=== PATIENT | female | born 1970 | race Caucasian/White ===

== ENCOUNTER 2020-05-23 22:53 | Inpatient (IN) | payer OTHER, SELFPAY ==
[2020-05-23 23:06] VITALS: BP 154/101; PULSE 119; RESP 17; TEMP 36.6; O2SAT 98; BMI 20.5
--- NOTE | 2020-05-23 23:06 | CT_ITS ---
EXAMINATION: CT HEAD WITHOUT CONTRAST CLINICAL INFORMATION: Hallucination COMPARISON: 04/05/2019 TECHNIQUE: Contiguous axial imaging was performed from the skull base to vertex without intravenous administration of contrast. This CT examination was performed using dose optimization techniques as appropriate, variously including the following: *Automated exposure control *Adjustment of mA and/or kV according to patient size (this includes techniques or standardized protocols for targeted exams where dose is matched to indication/reason for exam; i.e. extremities or head) *Use of iterative reconstruction technique DLP: 596 mGy-cm FINDINGS: There is no evidence of acute intracranial hemorrhage or territorial infarction. No abnormal mass effect or midline shift is seen. Parada to white matter differentiation is well preserved. No extra-axial fluid collections are identified. The ventricles are normal in size. There is no abnormal attenuation within the brain parenchyma. The osseous structures and soft tissues are normal. The mastoid air cells and visualized portions of the paranasal sinuses are well aerated. CT/CT head/brain wo con IMPRESSION: No acute intracranial pathology.
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
[2020-05-23 23:44] LABS: Eosinophils Percent Auto 0.5 % (0-4); Hematocrit 39.7 % (37-47); MANUAL DIFF FLAG SCAN; Mean Corpuscular Volume 94.7 fL (80-98); PLT CLUMP 1; Red Blood Count 4.19 X10*6/uL (4.20-5.50); SCAN SMEAR FLAG 1
--- NOTE | 2020-05-23 23:45 | PC.NURSE ---
Patient compliant with admission process, calm and cooperative, mood pleasant, denied distress at this time, BHN faxed/called/spoke with [facility]/confirmed receipt of referral, will continue to monitor.
[2020-05-23 23:46] LABS: Basophils Absolute Auto 0.1 X10*3/uL (0.0-0.2); Basophils Percent Auto 0.9 % (0-2); Hemoglobin 13.6 g/dl (12.0-16.0); Imm Gran Abs Auto 0.02 X10*3/uL (0.00-0.03); Imm Gran Pct Auto 0.3 % (0.0-0.4); Lymphocytes Absolute Auto 0.9 X10*3/uL (1.2-4.9); Lymphocytes Percent Auto 13.5 % (20-40); Mean Corpuscular HGB Conc 34.3 g/dl (31.0-35.0); Mean Corpuscular Hemoglobin 32.5 pg (27.0-33.0); Mean Platelet Volume 11.2 fL (9.4-12.3); Monocytes Absolute Auto 0.6 X10*3/uL (0.1-1.2); Monocytes Percent Auto 10.1 % (2-11); Neutrophils Absolute Auto 4.7 X10*3/uL (2.0-8.3); Neutrophils Percent Auto 74.7 % (45-73); Red Cell Distribution Width 13.1 % (11.0-16.0); White Blood Count 6.4 X10*3/uL (4.8-10.8)
[2020-05-23 23:47] LABS: Base Excess VBG -0.9 mmol/L; HCO3 VBG 25 mmol/L; PCO2 VBG 46 mmhg; PO2 VBG 27 mmhg; pH VBG 7.35 (7.32-7.43)
[2020-05-23 23:48] LABS: Oxygen Saturation VBG 48.8 %
[2020-05-23 23:58] LABS: Ethanol < 10 mg/dL
[2020-05-24] VITALS (12 sets, daily range): BP systolic 96–129; BP diastolic 66–89; PULSE 67–97; RESP 14–77; TEMP 36.1–36.3; O2SAT 97–100
[2020-05-24] MEDS: LORazepam 1 MG TABLET 2 MG PO
[2020-05-24 00:02] LABS: Acetaminophen LAB < 1 mcg/mL (<30)
[2020-05-24 00:04] LABS: Salicylate < 5.0 mg/dL (15-30)
[2020-05-24 00:06] LABS: Glucose Urine UA NEG (NEG); Leukocyte Esterase Urine NEG (NEG); Nitrite Urine NEG (NEG); Specific Gravity - Urine 1.015 (1.005-1.025); Urine Blood NEG (NEG); Urine Ketones NEG (NEG); Urine Protein NEG (NEG-TRACE)
--- NOTE | 2020-05-24 00:06 | ECG_ITS ---
Test Reason : LOW MAG Blood Pressure : / mmHG Vent. Rate : 085 BPM Atrial Rate : 085 BPM P-R Int : 194 ms QRS Dur : 068 ms QT Int : 382 ms P-R-T Axes : 044 033 035 degrees QTc Int : 454 ms Normal sinus rhythm RSR' or QR pattern in V1 suggests right ventricular conduction delay Otherwise normal ECG No previous ECGs available Referred By: Marisa Mata Electronically Signed By:THOMAS CARTER MD
[2020-05-24 00:08] LABS: Appearance Urine CLOUDY; Color Urine YELLOW
[2020-05-24 00:08] LABS: Alanine Aminotransferase 92 U/L (0-31); Albumin Level 4.8 g/dL (3.5-5.0); Alkaline Phosphatase 72 U/L (39-117); Anion Gap 17 (12-20); Aspartate Amino Transferase 60 U/L (5-31); Bilirubin Direct 0.3 mg/dL (0.0-0.5); Bilirubin Total 0.6 mg/dL (0.0-1.0); Blood Urea Nitrogen 14 mg/dL (9-16); Calcium 10.1 mg/dL (8.4-10.2); Carbon Dioxide 24 mmol/L (22-29); Chloride 97 mmol/L (96-108); Creatinine Clr Calc Pharmacy 73.9; Estimated Glomerular Filt Rate > 60; Glucose Random 128 mg/dL (60-115); Platelet Count 106 X10*3/uL (160-400); Potassium 3.6 mmol/l (3.3-5.1); Sodium 134 mmol/L (135-145); Total Protein 7.9 g/dL (6.5-8.0)
[2020-05-24 00:09] LABS: SLIDE REVIEW VERIFIED
[2020-05-24] MEDS: Magnesium Sulfate/H2O 2 GM/50 ML PIGGYBACK IV (00:20)
[2020-05-24 00:22] LABS: Thyroid Stimulating Hormone 2.98 uIU/mL (0.32-4.0)
--- NOTE | 2020-05-24 00:29 | PC.NURSE ---
patient moved from pod to main ed for low magnesium. placed on cardiac catheterization technician. sinus rhythm. breathing even, non-labored. Reporting cramping in calves. Skin pink, warm, dry.
[2020-05-24 00:33] LABS: Amphetamine Screen Urine Not Detected (Not Detect); Barbiturates, Urine Not Detected (Not Detect); Benzodiazepines Screen Urine Not Detected (Not Detect); Cannabinoid Screen Urine Not Detected (Not Detect); Cocaine Screen Urine Not Detected (Not Detect); Opiate Screen Urine Not Detected (Not Detect); Phencyclidine Screen Urine Not Detected (Not Detect)
[2020-05-24] MEDS: LORazepam 2 MG/ML VIAL 1 MG IVPUSH (00:41)
--- NOTE | 2020-05-24 01:28 | PC.NURSE ---
sleeping at this time
--- NOTE | 2020-05-24 11:08 | PC.NURSE ---
moved to the pod, alert, denies hallucinations, states that she was able to sleep for several hours and hasn't had any hallucinations since leaving her house hours ago,informed of recommendation to stay in hospital and agreeable
--- NOTE | 2020-05-24 11:28 | PC.NURSE ---
Pt transferred from main ED. Pt denies depression, denies VH or AH at this time. IV removed. Pt stated she did not realize that she is awaiting inpatient bed. Pt affect flat, currently on telephone.
[2020-05-24 13:36] LABS: COVID-19 Test Negative (Negative); IDNOW Serial# 9DD0AD1C
--- NOTE | 2020-05-24 14:52 | PC.NURSE ---
Pt resting in room, denies any symptoms of withdrawal, denies headache, denies nausea, no tremors noted. Pt states she is thinking about her upcoming move, states she feels sghe needs to start packing, states she has friends who could help but 'i want to know where things are.'
--- NOTE | 2020-05-24 18:27 | PC.NURSE ---
Pt ate dinner.
--- NOTE | 2020-05-24 19:07 | PC.NURSE ---
Patient in bed appears sleeping, no distress observed/reported, respiration +/=/non-labored bilaterally, will continue to monitor.
[2020-05-24] MEDS: Loratadine 10 MG TABLET PO (21:50)
[2020-05-24] MEDS: traZODone HCL 100 MG TABLET 200 MG PO (21:50)
[2020-05-24] MEDS: LORazepam 1 MG TABLET PO (21:50)
[2020-05-25 06:38] VITALS: BP 110/73; PULSE 82; RESP 18; TEMP 36.8; O2SAT 96
[2020-05-25 09:22] VITALS: BP 120/51; PULSE 81; RESP 18; TEMP 36.9; O2SAT 98
[2020-05-25] MEDS: Pseudoephedrine HCL 30 MG TABLET PO (12:21)
--- NOTE | 2020-05-25 15:32 | PC.NURSE ---
Report given to M5 nurseViky
[2020-05-25 16:08] VITALS: BP 118/74; PULSE 96; RESP 18; TEMP 36.8; O2SAT 98
[2020-05-25] MEDS: LORazepam 0.5 MG TABLET PO ×2 (16:55→23:14)
[2020-05-25 17:40] VITALS: BP 139/98; PULSE 118; TEMP 36.6
[2020-05-25] MEDS: traZODone HCL 100 MG TABLET 200 MG PO (23:07)
[2020-05-25] MEDS: Loratadine 10 MG TABLET PO (23:14)
[2020-05-25] MEDS: Nicotine Polacrilex 2 MG GUM BUCCAL (23:21)
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
[2020-05-26 06:15] VITALS: BP 97/60; PULSE 80; RESP 18; TEMP 36.4; O2SAT 98
[2020-05-26 08:31] LABS: Cholesterol 236 mg/dL; HDL Cholesterol 68 mg/dL; LDL Cholesterol Calculated 148 mg/dl; Triglycerides 104 mg/dL
[2020-05-26 08:32] LABS: Alanine Aminotransferase 91 U/L (0-31); Albumin Level 4.5 g/dL (3.5-5.0); Alkaline Phosphatase 58 U/L (39-117); Anion Gap 14 (12-20); Aspartate Amino Transferase 47 U/L (5-31); Bilirubin Total 0.7 mg/dL (0.0-1.0); Blood Urea Nitrogen 10 mg/dL (9-16); Calcium 9.7 mg/dL (8.4-10.2); Carbon Dioxide 27 mmol/L (22-29); Chloride 100 mmol/L (96-108); Creatinine Clr Calc Pharmacy 78.8; Estimated Glomerular Filt Rate > 60; Glucose Fasting 81 mg/dL (60-99); Potassium 3.9 mmol/l (3.3-5.1); Sodium 137 mmol/L (135-145); Total Protein 7.4 g/dL (6.5-8.0)
[2020-05-26 08:39] LABS: Estimated Average Glucose 103 mg/dL; Hemoglobin A1c % 5.2 %
[2020-05-26] MEDS: LORazepam 0.5 MG TABLET PO ×3 (10:22→23:09)
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
[2020-05-26 12:38] VITALS: BP 111/72; PULSE 92; RESP 16; TEMP 36.8; O2SAT 98
[2020-05-26] MEDS: Nicotine Polacrilex 2 MG GUM BUCCAL (13:12)
[2020-05-26 17:00] VITALS: BP 116/79; PULSE 94; TEMP 36.6
[2020-05-26 19:46] LABS: Alanine Aminotransferase 85 U/L (0-31); Albumin Level 4.5 g/dL (3.5-5.0); Alkaline Phosphatase 68 U/L (39-117); Aspartate Amino Transferase 41 U/L (5-31); Bilirubin Direct < 0.2 mg/dL (0.0-0.5); Bilirubin Total 0.3 mg/dL (0.0-1.0); Gamma Glutamyl Transpeptidase 77 U/L (7-33); Magnesium 1.6 mg/dL (1.6-2.6); Total Protein 7.2 g/dL (6.5-8.0)
[2020-05-26 20:00] VITALS: BP 119/80; PULSE 82; TEMP 36.6
[2020-05-26 21:51] LABS: Folate 10.1 ng/mL (> or = 4.0); Vitamin B12 210 pg/mL (200-900)
[2020-05-26 22:01] LABS: Ammonia 39 umol/L (13-55)
[2020-05-26] MEDS: Loratadine 10 MG TABLET PO (22:30)
[2020-05-26] MEDS: traZODone HCL 100 MG TABLET 200 MG PO (22:30)
[2020-05-27 06:50] VITALS: BP 112/64; PULSE 76; RESP 16; TEMP 36.4
[2020-05-27 08:00] LABS: HBc Num1 0.36 S/CO (0.00-0.79); HBsAGNum1 0.27 S/CO (0.00-0.99); Hepatitis B Core Antibody Nonreactive (Nonreactive); Hepatitis B Surface Antigen Negative (Negative)
[2020-05-27 08:16] LABS: HBS Num1 6.91 mIU/mL (0-7.99); Hepatitis A Antibody IgM 0.27 Index (0-0.79); ~HepC Num1 0.07 S/CO (0.00-0.79); ~Hepatitis A Antibody IgM Nonreactive (Nonreactive); ~Hepatitis B Surface Antibody NONREACTIVE (Nonreactive); ~Hepatitis C Antibody Nonreactive (Nonreactive)
[2020-05-27] MEDS: Acetaminophen 325 MG TABLET 650 MG PO (08:28)
[2020-05-27] MEDS: LORazepam 0.5 MG TABLET PO ×3 (10:10→22:49)
[2020-05-27] MEDS: Nicotine Polacrilex 2 MG GUM BUCCAL (10:16)
[2020-05-27 12:00] VITALS: BP 111/67; PULSE 81; RESP 16; TEMP 36.6; O2SAT 100
[2020-05-27] MEDS: Cyanocobalamin (Vitamin B-12) 1,000 MCG/ML VIAL 1000 MCG IM (16:14)
[2020-05-27] MEDS: Escitalopram Oxalate 5 MG TABLET PO (16:14)
--- NOTE | 2020-05-27 21:28 | HO.PSYCHPN ---
Subjective Subjective Date of Service: 05/28/20 Reason For Visit: depressed mood confusional state Subjective Notes: Conditional Voluntary Interim History: Patient less guarded more forthcoming regarding recent symptoms. Continues to not deny alcohol or substance use. Acknowledging more of the effects of PTSD and its affects on her life. Had not wanted to think of herself as weak read material on depression and PTSD Medication Compliance: Yes Review of Systems Review of Systems Constitutional : No Fever, No Chills ENT/Mouth : No Ear Pain, No Nasal Congestion, No sore throat Eyes: No Eye Pain, No Swelling, No Redness Cardiovascular : No Chest Pain, No SOB Respiratory : No Cough, No Sputum, No Dyspnea Gastrointestinal : No Nausea, No Vomiting, No Diarrhea, No Hematochezia, No Melena Genitourinary : No Dysuria, No Urinary Frequency, No Hematuria Musculoskeletal : No Myalgias Skin : No Skin Lesions, No rash Neuro : No Weakness, No Numbness, No Paresthesias, No Dizziness, No Headache Psych : positive Anxiety, no Depression, no SI/HI Heme/Lymph: No Lymphadenopathy Endocrine : No Polyuria, No Polydipsia All other systems reviewed and are negative Mental Status Exam Mental Status Exam Patient Appearance: Appropriate Patient Orientation: Person, Place, Time and Situation Level of Consciousness: Awake Patient Behavior: Appropriate and Cooperative Mood Description: Constricted, Anxious, Blunted and Apprehensive Affect Description: Constricted and Anxious Patient Cognition Impaired: No Ability to Follow Directions: Good Speech Pattern: Clear Memory Description: Intact Thought Content: positive for Goal Oriented, negative for Suicidal Ideation and negative for Homicidal Ideation Depressive Symptoms: Increased Anxiety and Insomnia Diagnostics Vital Signs (24Hr): Vital Signs - 24 hr 05/27/20 06:50 05/27/20 12:00 Temperature 97.6 F 97.8 F Pulse Rate 76 81 Respiratory Rate 16 16 Blood Pressure 112/64 111/67 Pulse Oximetry 100 Body Mass Index 20.5 Labs Results: 05/23/20 23:33 05/26/20 07:55 Labs: Laboratory Results - last 48 hr 05/26/20 05/26/20 05/26/20 07:55 07:55 07:55 Sodium 137 Potassium 3.9 Chloride 100 Carbon Dioxide 27 Anion Gap 14 BUN 10 Creatinine 0.75 Estim Creat Clear Calc 78.8 Estimated GFR > 60 Fasting Glucose 81 Estimat Average Glucose 103 Hemoglobin A1c % 5.2 Calcium 9.7 Magnesium Total Bilirubin 0.7 Direct Bilirubin GGT AST 47 H ALT 91 H Alkaline Phosphatase 58 Ammonia Total Protein 7.4 Albumin 4.5 Triglycerides 104 Cholesterol 236 LDL Cholesterol, Calc 148 HDL Cholesterol 68 Vitamin B12 Folate Hepatitis A IgM Ab Hep Bs Antigen Hep Bs Antibody Hep B Core Total Ab Hepatitis C Ab (EIA) 05/26/20 05/26/20 05/26/20 18:46 18:46 18:46 Sodium Potassium Chloride Carbon Dioxide Anion Gap BUN Creatinine Estim Creat Clear Calc Estimated GFR Fasting Glucose Estimat Average Glucose Hemoglobin A1c % Calcium Magnesium 1.6 Total Bilirubin 0.3 Direct Bilirubin < 0.2 GGT 77 H AST 41 H ALT 85 H Alkaline Phosphatase 68 Ammonia Cancelled Total Protein 7.2 Albumin 4.5 Triglycerides Cholesterol LDL Cholesterol, Calc HDL Cholesterol Vitamin B12 210 Folate 10.1 Hepatitis A IgM Ab Hep Bs Antigen Hep Bs Antibody Hep B Core Total Ab Hepatitis C Ab (EIA) 05/26/20 05/26/20 18:46 21:40 Sodium Potassium Chloride Carbon Dioxide Anion Gap BUN Creatinine Estim Creat Clear Calc Estimated GFR Fasting Glucose Estimat Average Glucose Hemoglobin A1c % Calcium Magnesium Total Bilirubin Direct Bilirubin GGT AST ALT Alkaline Phosphatase Ammonia 39 Total Protein Albumin Triglycerides Cholesterol LDL Cholesterol, Calc HDL Cholesterol Vitamin B12 Folate Hepatitis A IgM Ab Nonreactive Hep Bs Antigen Negative Hep Bs Antibody NONREACTIVE Hep B Core Total Ab Nonreactive Hepatitis C Ab (EIA) Nonreactive Imaging Radiology Impressions: ITS Impressions Head CT 05/23/20 23:06 IMPRESSION: No acute intracranial pathology. Medications Medications Current Medications Generic Name Dose Route Start Last Admin Trade Name Freq PRN Reason Stop Dose Admin Acetaminophen 650 mg 05/25/20 18:53 05/27/20 08:28 Acetaminophen 325 Mg Tablet PO 650 mg Q6H PRN Administration Headache/Pain Mild Scale (1-3) Al Hydroxide/Mg Hydroxide 30 ml 05/25/20 18:53 Magnesium Hydrox/Alum Hydrox 30 Ml Oral.Susp PO Q6H PRN Heartburn/Nausea Escitalopram Oxalate 5 mg 05/27/20 15:20 05/27/20 16:14 Escitalopram Oxalate 5 Mg Tablet PO 5 mg DAILY JUAREZ Administration Hydroxyzine HCl 25 mg 05/25/20 18:53 Hydroxyzine Hcl 25 Mg Tablet PO BEDTIME PRN Anxiety Loratadine 10 mg 05/24/20 20:58 05/26/20 22:30 Loratadine 10 Mg Tablet PO 10 mg DAILY PRN Administration allergy symptoms Lorazepam 0.5 mg 05/25/20 15:06 05/27/20 16:13 Lorazepam 0.5 Mg Tablet PO 0.5 mg Q6H PRN Administration Anxiety Magnesium Hydroxide 30 ml 05/25/20 18:53 Milk Of Magnesia 30 Ml Oral.Susp PO DAILY PRN Constipation Nicotine Polacrilex 2 mg 05/25/20 18:53 05/27/20 10:16 Nicotine Polacrilex 2 Mg Gum BUCCAL 2 mg Q2H PRN Administration Nicotine Cravings Pseudoephedrine HCl 30 mg 05/26/20 15:59 Pseudoephedrine Hcl 30 Mg Tablet PO Q6H PRN Nasal Congestion Trazodone HCl 200 mg 05/24/20 21:00 05/26/20 22:30 Trazodone Hcl 100 Mg Tablet PO 200 mg BEDTIME JUAREZ Administration Trazodone HCl 50 mg 05/25/20 18:53 Trazodone Hcl 50 Mg Tablet PO BEDTIME PRN Insomnia Allergies Allergies Allergy/AdvReac Type Severity Reaction Status Date / Time aspirin [ASPIRIN] Allergy Severe ASTHMA Verified 05/24/20 00:35 EXACERBATION, asthma attack bupropion [From WELLBUTRIN] Allergy Intermediate HIVES Verified 05/24/20 00:35 METAL Allergy Severe RAW/MELTED Uncoded 03/19/20 17:00 METAL/WELDING FLUX-ANAPHYLAXIS flux (metal) Allergy Unknown difficulty Uncoded 01/15/20 00:00 breathing Assessment & Plan Assessment & Plan (1) Hypomagnesemia: Status: Acute Code(s): E83.42 - Hypomagnesemia (2) Hallucinations: Status: Acute Code(s): R44.3 - Hallucinations, unspecified (3) PTSD (post-traumatic stress disorder): Status: Acute Code(s): F43.10 - Post-traumatic stress disorder, unspecified Assessment and Plan: patient more reflective less guarded agreeable to outpatient referrals seems safe for discharge consideration May 29 Greater than 50% of the session was spent on counseling and/or coordination of care
[2020-05-27 22:00] VITALS: BP 116/72; PULSE 84; TEMP 36.3
[2020-05-27] MEDS: Loratadine 10 MG TABLET PO (22:49)
[2020-05-27] MEDS: traZODone HCL 100 MG TABLET 200 MG PO (22:50)
[2020-05-28 06:05] VITALS: BP 99/64; PULSE 70; RESP 16; TEMP 36.8; O2SAT 95
[2020-05-28] MEDS: Escitalopram Oxalate 5 MG TABLET PO (08:56)
[2020-05-28 09:09] VITALS: BMI 22.9
[2020-05-28] MEDS: LORazepam 0.5 MG TABLET PO ×3 (09:56→23:36)
--- NOTE | 2020-05-28 13:08 | HO.PSYCHPN ---
Subjective Subjective Date of Service: 05/28/20 Reason For Visit: depressed mood confusional state Subjective Notes: Conditional Voluntary Interim History: Fallon has been feeling well. She has no complaints and she is feeling ready to go home tomorrow. She is excited about a job interview that she has. Medication Compliance: Yes Side effects from medications: No Attending Groups: Yes Review of Systems Acute medical concerns: No Medical Review of Systems: unchanged Mental Status Exam Mental Status Exam Patient Appearance: Appropriate Patient Orientation: Person, Place, Time and Situation Level of Consciousness: Awake Patient Behavior: Appropriate and Cooperative Mood Description: Calm Affect Description: Calm Patient Cognition Impaired: No Ability to Follow Directions: Good Speech Pattern: Clear Memory Description: Intact Hallucinations: None Delusions: Not Present Thought Process: Intact Thought Content: positive for Goal Oriented, negative for Suicidal Ideation and negative for Homicidal Ideation Judgement: Good Diagnostics Vital Signs (24Hr): Vital Signs - 24 hr 05/27/20 22:00 05/28/20 06:05 Temperature 97.4 F 98.3 F Pulse Rate 84 70 Respiratory Rate 16 Blood Pressure 116/72 99/64 Pulse Oximetry 95 Body Mass Index 22.9 Labs Results: 05/23/20 23:33 05/26/20 07:55 Labs: Laboratory Results - last 48 hr 05/26/20 05/26/20 05/26/20 18:46 18:46 18:46 Magnesium 1.6 Total Bilirubin 0.3 Direct Bilirubin < 0.2 GGT 77 H AST 41 H ALT 85 H Alkaline Phosphatase 68 Ammonia Cancelled Total Protein 7.2 Albumin 4.5 Vitamin B12 210 Folate 10.1 Hepatitis A IgM Ab Hep Bs Antigen Hep Bs Antibody Hep B Core Total Ab Hepatitis C Ab (EIA) 05/26/20 05/26/20 18:46 21:40 Magnesium Total Bilirubin Direct Bilirubin GGT AST ALT Alkaline Phosphatase Ammonia 39 Total Protein Albumin Vitamin B12 Folate Hepatitis A IgM Ab Nonreactive Hep Bs Antigen Negative Hep Bs Antibody NONREACTIVE Hep B Core Total Ab Nonreactive Hepatitis C Ab (EIA) Nonreactive Imaging Radiology Impressions: ITS Impressions Head CT 05/23/20 23:06 IMPRESSION: No acute intracranial pathology. Medications Medications Current Medications Generic Name Dose Route Start Last Admin Trade Name Freq PRN Reason Stop Dose Admin Acetaminophen 650 mg 05/25/20 18:53 05/27/20 08:28 Acetaminophen 325 Mg Tablet PO 650 mg Q6H PRN Administration Headache/Pain Mild Scale (1-3) Al Hydroxide/Mg Hydroxide 30 ml 05/25/20 18:53 Magnesium Hydrox/Alum Hydrox 30 Ml Oral.Susp PO Q6H PRN Heartburn/Nausea Escitalopram Oxalate 5 mg 05/27/20 15:20 05/28/20 08:56 Escitalopram Oxalate 5 Mg Tablet PO 5 mg DAILY JUAREZ Administration Hydroxyzine HCl 25 mg 05/25/20 18:53 Hydroxyzine Hcl 25 Mg Tablet PO BEDTIME PRN Anxiety Loratadine 10 mg 05/24/20 20:58 05/27/20 22:49 Loratadine 10 Mg Tablet PO 10 mg DAILY PRN Administration allergy symptoms Lorazepam 0.5 mg 05/25/20 15:06 05/28/20 09:56 Lorazepam 0.5 Mg Tablet PO 0.5 mg Q6H PRN Administration Anxiety Magnesium Hydroxide 30 ml 05/25/20 18:53 Milk Of Magnesia 30 Ml Oral.Susp PO DAILY PRN Constipation Nicotine Polacrilex 2 mg 05/25/20 18:53 05/27/20 10:16 Nicotine Polacrilex 2 Mg Gum BUCCAL 2 mg Q2H PRN Administration Nicotine Cravings Pseudoephedrine HCl 30 mg 05/26/20 15:59 Pseudoephedrine Hcl 30 Mg Tablet PO Q6H PRN Nasal Congestion Trazodone HCl 200 mg 05/24/20 21:00 05/27/20 22:50 Trazodone Hcl 100 Mg Tablet PO 200 mg BEDTIME JUAREZ Administration Trazodone HCl 50 mg 05/25/20 18:53 Trazodone Hcl 50 Mg Tablet PO BEDTIME PRN Insomnia Allergies Allergies Allergy/AdvReac Type Severity Reaction Status Date / Time aspirin [ASPIRIN] Allergy Severe ASTHMA Verified 05/24/20 00:35 EXACERBATION, asthma attack bupropion [From WELLBUTRIN] Allergy Intermediate HIVES Verified 05/24/20 00:35 METAL Allergy Severe RAW/MELTED Uncoded 03/19/20 17:00 METAL/WELDING FLUX-ANAPHYLAXIS flux (metal) Allergy Unknown difficulty Uncoded 01/15/20 00:00 breathing Assessment & Plan Assessment & Plan (1) PTSD (post-traumatic stress disorder): Status: Acute Code(s): F43.10 - Post-traumatic stress disorder, unspecified Assessment and Plan: CT current plan Anticipate DC in am Greater than 50% of the session was spent on counseling and/or coordination of care Patient educated on: diagnosis and medication risk/benefits Informed Consent: understands Reason for contiued inpatient stay Substantial Risk for: rapid decompensation
[2020-05-28] MEDS: Nicotine Polacrilex 2 MG GUM BUCCAL (16:31)
[2020-05-28 16:45] VITALS: BP 109/72; PULSE 76; TEMP 35.9
[2020-05-28 18:56] LABS: Lyme Abs Screen <0.90 index
[2020-05-28] MEDS: traZODone HCL 100 MG TABLET 200 MG PO (23:36)
[2020-05-28] MEDS: Loratadine 10 MG TABLET PO (23:36)
[2020-05-29 07:01] VITALS: BP 84/53; PULSE 79; TEMP 36; O2SAT 99
[2020-05-29] MEDS: Escitalopram Oxalate 5 MG TABLET PO (08:31)
[2020-05-29] MEDS: LORazepam 0.5 MG TABLET PO (10:09)
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
== END 2020-05-29 11:35 | disposition home or self-care (01) | DRG 755 ==
LOC: HO.ED 05-24 11:08 → HO.PM5 05-25 15:10
PROVIDERS: Nurse Practitioner Family; Admitting Provider Psychiatry & Neurology Psychiatry; Emergency Provider Emergency Medicine; PCP Internal Medicine; Visit Provider Psychiatry & Neurology Psychiatry
DX: F43.10 Post-traumatic stress disorder, unspecified (principal); E83.42 Hypomagnesemia; R44.3 Hallucinations, unspecified; Z20.828 Contact with and (suspected) exposure to other viral communicable diseases; Z88.6 Allergy status to analgesic agent; Z79.899 Other long term (current) drug therapy
CPT/HCPCS: 36415; 70450; 80048; 80053; 80061; 80076; 80307; 80320; 81003; 82140; 82607; 82746; 82803; 82977; 83036; 83735; 84443; 85025; 86618; 86704; 86706; 86709; 86803; 87340; 87635; 90792; 93005; 99232; 99285; G0480; J2060; J3475